=== PATIENT | male | born 2000 | race Caucasian/White ===

== ENCOUNTER 2023-01-04 15:33 | Emergency (ER) | payer OTHER, SELFPAY ==
[2023-01-04 15:39] VITALS: BP 159/99; PULSE 85; RESP 16; TEMP 36.8; O2SAT 98
--- NOTE | 2023-01-04 15:45 | DI.RAD_ITS ---
Exam(s) XR WRIST LT COMP NAVICULAR EXAM: XR WRIST LT COMP NAVICULAR CLINICAL HISTORY: pain. TECHNIQUE: 2D digital imaging was performed. Three views. COMPARISON: No exams were available for comparison FINDINGS: BONES: No acute fracture is present. No bony destructive lesion is seen. JOINTS: The carpal bones are normally aligned. SOFT TISSUE: Mild soft tissue swelling IMPRESSION: Mild soft tissue swelling DATA REPOSITORY: RADIATION DOSE DELIVERED:
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
== END 2023-01-04 16:59 | disposition home or self-care (01) ==
PROVIDERS: Emergency Provider Emergency Medicine
DX: S63.92XA Sprain of unspecified part of left wrist and hand, initial encounter (principal); V19.3XXA Pedal cyclist (driver) (passenger) injured in unspecified nontraffic accident, initial encounter
CPT/HCPCS: 29125; 99283; 73110